=== PATIENT | female | born 1975 | race Caucasian/White ===

== ENCOUNTER 2022-04-05 11:49 | Emergency (ER) | payer MEDICARE ==
[~2022-04-05] VITALS: Ht 162.6 cm; Wt 108.9 kg
[2022-04-05] MEDS ORDERED: Morphine 2mg Syringe 2 MG/ML SYR IV STA (16:47)
[2022-04-05] MEDS ORDERED: ONDANSETRON HCL INJ 2MG/ML 2ML 2 MG/ML VIAL IV STA (16:47)
[2022-04-05] MEDS ORDERED: SODIUM CHLORIDE 0.9% 1000ML 1,000 ML IV STA (16:47)
[2022-04-05] MEDS ORDERED: DICYCLOMINE HCL 20 MG/2 ML VIAL IM ONE (17:00)
[2022-04-05 18:00] LABS: CLARITY,URINE CLEAR (CLEAR); COLOR,URINE YELLOW (YELLOW); LEUKOCYTE ESTERASE ,URINE NEGATIVE (NEGATIVE); NITRITE,URINE NEGATIVE (NEGATIVE); PROTEIN,URINE DIPSTICK NEGATIVE (NEGATIVE)
[2022-04-05 18:01] LABS: KETONES,URINE 1+ (NEGATIVE); URINE UROBILINOGEN 0.2 mg/dL (0.2 - 1)
[2022-04-05 18:05] LABS: BASOPHILS % 0.4 % (0.0-1.0); EOSINOPHILS # (AUTO) 0.4 (0.0-0.4); EOSINOPHILS % 3.5 % (0.0-6.0); HEMATOCRIT 41.9 % (34.2-44.1); HEMOGLOBIN 13.4 g/dL (12.0-16.0); LYMPHOCYTES # (AUTO) 2.5 (1.0-3.2); LYMPHOCYTES % 23.3 % (18.0-39.1); MEAN CORPUSCULAR HEMOGLOBIN 29.9 pg (28-32); MEAN CORPUSCULAR VOLUME 93.5 fL (81-99); MONOCYTES # (AUTO) 0.6 (0.2-0.8); MONOCYTES % 5.4 % (4.4-11.3); NEUTROPHILS # (AUTO) 7.1 (2.1-6.9); NEUTROPHILS % 67.1 % (38.7-80.0); PLATELET COUNT 288 x10e3/uL (140-360); RED BLOOD COUNT 4.48 x10e6/uL (3.6-5.1); RED CELL DISTRIBUTION WIDTH 13.1 % (11.7-14.4)
[2022-04-05 18:15] LABS: BACTERIA,URINE FEW /HPF; WBC,URINE (MAN) 0-5 /HPF (0-5)
[2022-04-05 18:16] LABS: EPITHELIAL CELLS,URINE MODERATE /LPF
[2022-04-05 18:33] LABS: ALANINE AMINOTRANSFERASE 13 IU/L (0-55); ALBUMIN/GLOBULIN RATIO 0.9 (0.8-2.0); ALKALINE PHOSPHATASE 93 IU/L (40-150); ANION GAP 17.5 mmol/L (8-16); BLOOD UREA NITROGEN 12 mg/dL (7-26); BUN/CREATININE RATIO 16 (6-25); CALCIUM 9.7 mg/dL (8.4-10.2); CARBON DIOXIDE 23 mmol/L (22-29); CHLORIDE 101 mmol/L (98-107); CREATINE KINASE 82 IU/L (29-168); CREATININE, SERUM 0.77 mg/dL (0.57-1.11); GLUCOSE 82 mg/dL (74-118); LIPASE 18 U/L (8-78); MAGNESIUM 1.9 MG/DL (1.3-2.1); POTASSIUM 3.5 mmol/L (3.5-5.1); SODIUM 138 mmol/L (136-145)
[2022-04-05] MEDS ORDERED: ULTRAM50 MG PO (19:05)
[2022-04-05] MEDS ORDERED: DICYCLOMINE HCL20 MG PO (19:05)
[2022-04-05] MEDS ORDERED: ONDANSETRON ODT4 MG PO (19:06)
[2022-04-05 19:37] VITALS: BP 143/78
== END 2022-04-05 20:00 | disposition home or self-care (01) ==
LOC: ER 12:29
DX: R10.11 Right upper quadrant pain (principal); K80.20 Calculus of gallbladder without cholecystitis without obstruction; E78.5 Hyperlipidemia, unspecified; R16.0 Hepatomegaly, not elsewhere classified; K21.9 Gastro-esophageal reflux disease without esophagitis; H91.3 Deaf nonspeaking, not elsewhere classified
CPT/HCPCS: 36415; 76705; 80053; 81001; 82550; 82553; 83690; 83735; 84484; 84702; 85025; 87086; 99284; C9113; J0500; J2270; J2405; J7030

== ENCOUNTER → 2022-09-30 | Outpatient (CLI) | payer MEDICARE ==
[~2022-09-30] MED LIST: DICYCLOMINE HCL20 MG PO; HYDROXYZINE HCL25 MG PO; LEVOCETIRIZINE D5 MG; MECLIZINE HCL12.5 MG PO; ONDANSETRON ODT4 MG PO; PANTOPRAZOLE SO40 MG PO; PROTONIX20 MG PO; SIMVASTATIN40 MG PO; TIZANIDINE HCL2 MG; TIZANIDINE HCL4 MG PO; ULTRAM50 MG PO; VARENICLINE TART1 MG; VARENICLINE1 EACH
== END ==
LOC: MAMMO 14:55
PROVIDERS: ATTEND Internal Medicine
DX: Z12.31 Encounter for screening mammogram for malignant neoplasm of breast (principal)
CPT/HCPCS: 77067

== ENCOUNTER → 2024-04-14 | Outpatient (REF) | payer MEDICARE | LOC: RAD 10:04 | PROVIDERS: ATTEND Internal Medicine | DX: J44.1 Chronic obstructive pulmonary disease with (acute) exacerbation (principal) | CPT/HCPCS: 71046 ==

== ENCOUNTER → 2024-05-27 | Outpatient (REF) | payer MEDICARE | LOC: CT 12:58 | PROVIDERS: ATTEND Internal Medicine | DX: Z12.31 Encounter for screening mammogram for malignant neoplasm of breast (principal); J81.0 Acute pulmonary edema | CPT/HCPCS: 71250; 77067 ==

== ENCOUNTER → 2024-06-29 | Outpatient (REF) | payer MEDICARE | LOC: MAMMO 13:40 | PROVIDERS: ATTEND Internal Medicine | DX: N64.89 Other specified disorders of breast (principal) ==